=== PATIENT | female | born 1965 | race Caucasian/White ===

== ENCOUNTER → 2017-03-10 | Outpatient (CLI) | payer BC ==
[2015-06-11 00:54] VITALS: BP 112/70
--- NOTE | 2017-03-11 10:37 | MG ---
HISTORY: SCREENING Comparison: March 03, 2016 FINDINGS: Bilateral CC and MLO projections of the right and left breast were obtained. Heterogeneously dense fibroglandular tissue is seen to be present. No significant architectural distortion, mass or clust ered microcalcifications can be observed to suggest malignancy. No skin thickening or nipple retrac tion is appreciated. No pathological lymphadenopathy can be identified. Benign-appearing calcifica tions scattered throughout the right and left breasts are observed. IMPRESSION: NO RADIOGRAPHIC EVIDENCE OF MALIGNANCY. ACR CATEGORY: 2 - benign findings. FOLLOW-UP EXAM 1 YEAR. Diagnostic CAD was utilized and reviewed. * 0 (ZERO) - ASSESSMENT INCOMPLETE; ADDITIONAL IMAGING IS NEEDED. * 1/1 (ONE) - NEGATIVE. * 2/II (TWO) - BENIGN FINDINGS. * 3/III (THREE) - PROBABLY BENIGN FINDING; SHORT INTERVAL FOLLOW-UP SUGGESTED. * 4/IV (FOUR) - SUSPICIOUS ABNORMALITY; BIOPSY SHOULD BE CONSIDERED. * 5/V - HIGHLY SUSPICIOUS OF MALIGNANCY; BIOPSY SHOULD BE PERFORMED. A NEGATIVE X-RAY REPORT SHOULD NOT DELAY BIOPSY IF A DOMINANT OR CLINICALLY SUSPICIOUS MASS IS PRESENT; 4 TO 8 PERCENT OF CANCERS ARE NOT IDENTIFIED BY X-RAY. A NEG ATIVE REPORT MAY REINFORCE THE CLINICAL IMPRESSION. ADENOSIS AND DENSE BREASTS MAY OBSCURE AN UNDER LYING NEOPLASM. Reported By:
== END ==
LOC: RAD 13:43
PROVIDERS: ATTEND Specialist
DX: Z12.31 Encounter for screening mammogram for malignant neoplasm of breast (principal)
CPT/HCPCS: 77067

== ENCOUNTER 2018-10-25 10:09 | Observation (INO) ==
--- NOTE | 2018-10-25 11:08 | DR.DIZZY ---
HPI Time seen Time Seen by Provider: 10/25/18 10:55 PCP Primary Care Physician: DR MERINO Complaint Chief Complaint Doctor Comments: I agree with statement as written. Patient admits to dizziness workup in the past to include CT of Brain w/u negative this was five years ago. PMH of HTN. Chief Complaint:: PT WAS AT WORK THIS MORNING AND BENT OVER TO GET SOMETHING OFF THE SHELF AND WHEN SHE STOOD UP SHE BECAME VERY DIZZY AND FELT LIKE THE ROOM WAS SPINNING. SINCE THEN SHE HAS HAD INTERMITTENT EPISODES OF SEVERE DIZZINESS. Source History Provided: Patient Mode of Arrival Mode of Arrival: Ambulatory Timing Onset of Chief Complaint: 10/25/18 Symptom Onset: Unknown Location of Weakness Weakness Location: None Context History of: None Stroke Symptoms: None Associated signs and symptoms Associated Signs and Symptoms: Vertigo PMH PMH Past Medical History: Yes Past Medical History: Anxiety, Dyslipidemia and Hypertension Past Surgical History: Yes Surgical History: Cholecystectomy Past Surgical History Comment: CARPAL TUNNEL,D&C Family History History of Family Medical Conditions: Yes Family Medical History: Cancer and Hypertension Social History Does patient currently use any type of tobacco product: No Have you used tobacco products in the last 12 months: No Type of Tobacco Use: None Does any household member use tobacco: Yes Alcohol Use: Occasionally Do you use any recreational Drugs:: No Lives With: Family Lives Where: Home infectious screening In the last 2 months have you had wt loss of >10#?: NO Have you had fever, night sweats or hemotysis?: No Have you traveled outside the country in the last 6 months?: No Isolation: Standard PE Vital Signs Vitals: Temperature 98.3 F Pulse Rate [Brachial] 69 Pulse Rate 72 Respiratory Rate 18 Blood Pressure [Right Arm] 112/70 Blood Pressure [Left Arm] 111/67 Blood Pressure 127/73 O2 Sat by Pulse Oximetry 94 General Limitations: No Limitations and Language Barrier General Appearance: Alert, In No Apparent Distress and Appears Intoxicated Head Head Exam: Normal Inspection, Atraumatic and Normocephalic Eyes Eye exam: Normal Appearance, PERRL and EOMI Pupils: Regular, Round: Bilateral Sclera/Conjunctival: Normal Inspection: Bilateral Anterior Chamber: Normal Inspection: Bilateral Posterior Chamber: Deferred: Bilateral ENT ENT Exam: Normal Exam, Normal Oropharynx and Normal External Ear Exam Neck Neck Exam: Normal Inspection, Full ROM and Trachea Midline Chest Chest Inspection: Normal Inspection and Symmetric Chest Wall Rise Respiratory Respiratory Exam: Normal Lung Sounds Bilat Respiratory Exam: Bilateral: Clear to Auscultation Cardiovascular Cardiovascular Exam: Regular Rate and Normal Rhythm Abdominal Exam Abdominal Exam: Normal Inspection, Normal Bowel Sounds and Soft Rectal Rectal Exam: Deferred Extremeties Extremities Exam: Normal Inspection and Normal Capillary Refill; negative Tenderness, Edema and Joint Swelling Back Back Exam: Normal Inspection and Full ROM Neurologic Neurological Exam: Alert, Oriented X3, CN II-XII Intact and Normal Gait Cranial Nerve Exam: EOM Function (II, III, IV, ): Normal Cerebellar Function: Finger to Nose: Normal Motor Strength - LUE: 4/5 Motor Strength - RUE: 4/5 Motor Strength - LLE: 4/5 Skin Skin Exam: Warm, Dry, Intact and Normal Color COURSE Consultation Called: 11:50 Consultation Comments: Dr. Merino agreed to admit for further evaluation ROR Labs Reviewed Result Diagrams: 10/25/18 11:23 10/25/18 11:23 Laboratory: WBC 7.1 X10^3/uL (3.6-10.0) 10/25/18 11:23 RBC 4.32 X10^6/uL (3.5-5.4) 10/25/18 11:23 Hgb 13.0 g/dL (12.0-16.0) 10/25/18 11:23 Hct 39.2 % (36.0-47.0) 10/25/18 11:23 MCV 90.7 fL (80.0-100.0) 10/25/18 11:23 MCH 30.0 pg (27.0-34.0) 10/25/18 11:23 MCHC 33.1 g/dL (33.0-35.0) 10/25/18 11:23 RDW 14.3 % (11.6-16.5) 10/25/18 11:23 Plt Count 323 X10^3/uL (150.0-450.0) 10/25/18 11:23 MPV 8.3 fL (7.4-11.0) 10/25/18 11:23 Neut % (Auto) 63.4 % (42.0-75.0) 10/25/18 11:23 Lymph % (Auto) 22.7 % (21.0-51.0) 10/25/18 11:23 Davison % (Auto) 9.6 % (0.0-13.0) 10/25/18 11:23 Eos % (Auto) 3.4 % (0.9-2.9) H 10/25/18 11:23 Baso % (Auto) 0.9 % (0.2-1.0) 10/25/18 11:23 Neut # (Auto) 4.5 x10^3/uL (2.2-4.8) 10/25/18 11:23 Lymph # (Auto) 1.6 X10^3/uL (1.3-2.9) 10/25/18 11:23 Davison # (Auto) 0.7 x10^3/uL (0.3-0.8) 10/25/18 11:23 Eos # (Auto) 0.2 x10^3/uL (0.0-0.2) 10/25/18 11:23 Baso # (Auto) 0.1 X10^3/uL (0.0-0.1) 10/25/18 11:23 Absolute Nucleated RBC 0.0 /100WBC 10/25/18 11:23 INR Target Range - 10/25/18 11:23 INR 0.89 (0.8-1.3) 10/25/18 11:23 APTT 25.4 SECONDS (22.9-36.5) 10/25/18 11:23 PTT Comment - 10/25/18 11:23 Sodium 138 mmol/L (136-145) 10/25/18 11:23 Corrected Sodium TNP 10/25/18 11:23 Potassium 3.6 mmol/L (3.5-5.1) 10/25/18 11:23 Chloride 101 mmol/L (98-107) 10/25/18 11:23 Carbon Dioxide 29.8 mmol/L (21-32) 10/25/18 11:23 BUN 17 mg/dL (7-18) 10/25/18 11:23 Creatinine 0.93 mg/dL (0.55-1.02) 10/25/18 11:23 Est GFR (MDRD) Af Amer > 60 (>60) 10/25/18 11:23 Est GFR (MDRD) Non-Af > 60 (>60) 10/25/18 11:23 Glucose 101 mg/dL (65-99) H 10/25/18 11:23 Calcium 9.1 mg/dL (8.5-10.1) 10/25/18 11:23 Corrected Calcium TNP 10/25/18 11:23 Total Bilirubin 0.30 mg/dL (0.2-1.0) 10/25/18 11:23 AST 19 Units/L (15-37) 10/25/18 11:23 ALT 27 Units/L (12-78) 10/25/18 11:23 Alkaline Phosphatase 145 Units/L (46-116) H 10/25/18 11:23 Total Protein 7.9 g/dL (6.4-8.2) 10/25/18 11:23 Albumin 3.6 g/dL (3.4-5.0) 10/25/18 11:23 Globulin 4.3 g/dL (2.5-4.5) 10/25/18 11:23 Albumin/Globulin Ratio 0.8 Ratio (1.1-2.1) L 10/25/18 11:23 Triglycerides 213 mg/dL (0-150) H 10/25/18 11:23 Cholesterol 177 mg/dL (0-200) 10/25/18 11:23 LDL Cholesterol, Calc 55 mg/dL (0-100) 10/25/18 11:23 HDL Cholesterol 79 mg/dL (40-60) H 10/25/18 11:23 Cholesterol/HDL Ratio 2.2 (0.0-5.0) 10/25/18 11:23 Other Results Comments: CT Brain: No acute intracranial abnormality identified. 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 XRAY XRAY Interpreted by: Radiologist ADDITIONAL NOTES Additional Notes Additional Notes: patient admitted for further evaluation for syncope
--- NOTE | 2018-10-25 11:27 | CT ---
HISTORY: New onset dizziness Study: CT head without contrast Comparison: 12/15/2013 Technique: Axial noncontrast images with coronal and sagittal reformats. Dose reduction procedures were used with mA/kv adjusted for body size. Findings: The ventricles are normal in size shape and position. There is a small focus of decreased attenuation in the anterior limb of the right internal capsule likely an old lacunar infarct. There is no definite evidence for recent CVA, hemorrhage, mass lesion, or extra-axial fluid collection. The visualized sinuses are clear. The calvarium is intact. 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
[2018-10-25 11:31] LABS: BASOPHILS # (AUTO) 0.1 X10^3/uL (0.0-0.1); BASOPHILS % (AUTO) 0.9 % (0.2-1.0); EOSINOPHILS # (AUTO) 0.2 x10^3/uL (0.0-0.2); EOSINOPHILS % (AUTO) 3.4 % (0.9-2.9); HEMATOCRIT 39.2 % (36.0-47.0); LYMPHOCYTES # (AUTO) 1.6 X10^3/uL (1.3-2.9); LYMPHOCYTES % (AUTO) 22.7 % (21.0-51.0); MEAN CORPUSCULAR HGB CONC 33.1 g/dL (33.0-35.0); MEAN CORPUSCULAR VOLUME 90.7 fL (80.0-100.0); MEAN PLATELET VOLUME 8.3 fL (7.4-11.0); MONOCYTES # (AUTO) 0.7 x10^3/uL (0.3-0.8); MONOCYTES % (AUTO) 9.6 % (0.0-13.0); NEUTROPHILS # (AUTO) 4.5 x10^3/uL (2.2-4.8); NEUTROPHILS % (AUTO) 63.4 % (42.0-75.0); PLATELET COUNT 323 X10^3/uL (150.0-450.0); RED BLOOD COUNT 4.32 X10^6/uL (3.5-5.4); RED CELL DISTRIBUTION WIDTH 14.3 % (11.6-16.5); WHITE BLOOD COUNT 7.1 X10^3/uL (3.6-10.0)
[2018-10-25 11:38] LABS: BLOOD UREA NITROGEN 17 mg/dL (7-18); CALCIUM 9.1 mg/dL (8.5-10.1); CARBON DIOXIDE 29.8 mmol/L (21-32); CHLORIDE 101 mmol/L (98-107); CREATININE 0.93 mg/dL (0.55-1.02); SODIUM 138 mmol/L (136-145); eGFR NON BLACK RACES > 60 (>60)
[2018-10-25 12:06] LABS: ALANINE AMINOTRANSFERASE 27 Units/L (12-78); ALBUMIN 3.6 g/dL (3.4-5.0); ALKALINE PHOSPHATASE 145 Units/L (46-116); ASPARTATE AMINO TRANSFERASE 19 Units/L (15-37); TOTAL PROTEIN 7.9 g/dL (6.4-8.2)
[2018-10-25] MEDS ORDERED: NS 1/2 1000 ML IV 1,000 ML IV SCH (13:00)
[2018-10-25 13:09] LABS: CHOL/HDL RATIO 2.2 (0.0-5.0)
[2018-10-25] MEDS ORDERED: NS 1/2 1000 ML IV 1,000 ML IV ONE (13:42)
[2018-10-25 18:14] VITALS: BMI 32.2
--- NOTE | 2018-10-25 19:14 | DR.H&P ---
H&P - History & Physical for Day of: H&P Date: 10/25/18 - Chief Complaint Chief Complaint: DIZZINESS, NEAR SYNCOPE - History of Present Illness History of Present Illness: IS A 53 YEAR OLD PATIENT OF OURS. SHE PRESENTED TO THE OFFICE WITH COMPLAINTS OF ACUTE DIZZINESS AFTER BENDING OVER IN THE ROOM TO GET SOMETHING OFF OF A BOTTOM SHELF. SINCE THEN, SHE HAS HAD INTERMITTENT EPISODES OF SEVERE DIZZINESS. ON ARRIVAL, VITALS WERE 97 .4-72-22-100%-127/73. LABS WERE OBTAINED. ABNORMAL LAB VALUES INCLUDE THE FOLLOWING: GLUCOSE 101, ALK PHOS 145, TRIGLYCERIDES 213, HDL 79. A BRAIN CT WAS OBTAINED AND REVEALED: No acute intracranial abnormality identified. 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 EKG REVEALED ATRIAL FIBRILLATION WITH HR 84. SHE DENIES A HISTORY OF ATRIAL FIBRILLATION. SHE WAS ADMITTED FOR FURTHER EVALUATION AND TREATMENT OF ACUTE DIZZINESS AND NEAR SYNCOPE. SHE WAS STARTED ON NS AT [facility]. WE RESUMED HOME MEDICATIONS AND PLAN TO OBTAIN SERIAL CARDIAC ENZYMES AND EKGS. OTHERWISE, WE WILL FOLLOW UP WITH AM LABS AND CONTINUE TO MONITOR. - Past Medical History Past Medical History: Hypertension, Dyslipidemia, Anxiety - Past Surgical History Surgical History: Cholecystectomy - Family History Family Medical History: Cancer, Hypertension - Social History Does patient currently use any type of tobacco product: No Have you used tobacco products in the last 12 months: No Type of Tobacco Use: None Does any household member use tobacco: Yes Alcohol Use: Occasionally Drug Use: Prescription Drugs - Medications Home Medications: No Known Drug Allergies Allergy (Verified 10/25/18 11:24) CONTINUE taking the following medications conj estrogens-bazedoxifene [Duavee] 1 tab PO DAILY 10/25/18 [History] cyanocobalamin (vitamin B-12) 1 ml IM Q14D 10/25/18 [History] estradiol 0.01 % VAGINAL 2XW 10/25/18 [History] furosemide 40 mg PO DAILY 10/25/18 [History] metoprolol succinate 100 mg PO DAILY 10/25/18 [History] phentermine 1 tab PO DAILY 10/25/18 [History] triamterene-hydrochlorothiazid 1 cap PO DAILY 10/25/18 [History] - Review of Systems Constitutional: No Symptoms Reported Eyes: No Symptoms Reported ENT: No Symptoms Reported Respiratory: No Symptoms Reported Cardiovascular: Light Headedness Gastrointestinal: No Symptoms Reported Genitourinary: No Symptoms Reported Musculoskeletal: No Symptoms Reported Skin: No Symptoms Reported Neurological: No Symptoms Reported - Physical Exam Vital Signs: Temperature 98.3 F Pulse Rate [Brachial] 69 Pulse Rate 72 Respiratory Rate 18 Blood Pressure [Right Arm] 112/70 Blood Pressure [Left Arm] 111/67 Blood Pressure 127/73 O2 Sat by Pulse Oximetry 94 Oriented: Normal Eyes: Normal Ear: Normal Nose: Normal Throat: Normal Respiratory: Clear Throughout Cardiovascular: Irregular. negative: S3, S4, Murmur : Normal Auscultation: Bowel Sounds: Normal Palpation: Normal Tenderness: Normal Skin: Normal Musculoskeletal: Normal Psychiatric: Normal Mood Description: Calm Affect: Normal Speech Pattern: Clear - Assessment/Plan (1) Dizziness Status: Acute Plan: ADMIT, TELEMETRY, CONTINUE HOME MEDS, OBTAIN SERIAL CARDIAC ENZYMES AND EKGS, CONTINUE TO MONITOR (2) Near syncope Status: Acute (3) Atrial fibrillation by electrocardiogram Status: Acute - Allergies Allergies/Adverse Reactions: Allergies Allergy/AdvReac Type Severity Reaction Status Date / Time No Known Drug Allergies Allergy Verified 10/25/18 11:24
[2018-10-25 19:49] LABS: CKMB % 1.7 % (<4); CREATINE KINASE 60 Units/L (26-192); TROPONIN I < 0.02 ng/mL (0-1.5)
[2018-10-25 23:38] LABS: CKMB % 1.7 % (<4); CREATINE KINASE 58 Units/L (26-192); CREATINE KINASE MB < 1.0 ng/mL (0-4.0); TROPONIN I < 0.02 ng/mL (0-1.5)
[2018-10-26 05:16] LABS: BASOPHILS # (AUTO) 0.1 X10^3/uL (0.0-0.1); BASOPHILS % (AUTO) 0.9 % (0.2-1.0); EOSINOPHILS # (AUTO) 0.3 x10^3/uL (0.0-0.2); EOSINOPHILS % (AUTO) 4.7 % (0.9-2.9); HEMATOCRIT 37.2 % (36.0-47.0); HEMOGLOBIN 12.3 g/dL (12.0-16.0); LYMPHOCYTES # (AUTO) 1.8 X10^3/uL (1.3-2.9); LYMPHOCYTES % (AUTO) 29.3 % (21.0-51.0); MEAN CORPUSCULAR HGB CONC 32.9 g/dL (33.0-35.0); MEAN PLATELET VOLUME 8.5 fL (7.4-11.0); MONOCYTES # (AUTO) 0.6 x10^3/uL (0.3-0.8); MONOCYTES % (AUTO) 10.6 % (0.0-13.0); NEUTROPHILS # (AUTO) 3.3 x10^3/uL (2.2-4.8); NEUTROPHILS % (AUTO) 54.5 % (42.0-75.0); PLATELET COUNT 307 X10^3/uL (150.0-450.0); RED BLOOD COUNT 4.09 X10^6/uL (3.5-5.4); RED CELL DISTRIBUTION WIDTH 14.3 % (11.6-16.5)
[2018-10-26 05:42] LABS: ALANINE AMINOTRANSFERASE 27 Units/L (12-78); ALBUMIN 3.1 g/dL (3.4-5.0); ALKALINE PHOSPHATASE 129 Units/L (46-116); ASPARTATE AMINO TRANSFERASE 16 Units/L (15-37); BLOOD UREA NITROGEN 14 mg/dL (7-18); CALCIUM 8.8 mg/dL (8.5-10.1); CARBON DIOXIDE 26.8 mmol/L (21-32); CHLORIDE 104 mmol/L (98-107); COR CA(FOR HYPOALB) 9.5 mg/dL (8.5-10.1); CREATININE 0.86 mg/dL (0.55-1.02); SODIUM 139 mmol/L (136-145); TOTAL PROTEIN 6.8 g/dL (6.4-8.2); eGFR NON BLACK RACES > 60 (>60)
[2018-10-26 06:07] LABS: BILIRUBIN,URINE NEGATIVE (NEGATIVE); BLOOD/HEMOGLOBIN,URINE 2+ (NEGATIVE); GLUCOSE, URINE NEGATIVE (NEGATIVE); KETONES,URINE NEGATIVE (NEGATIVE); LEUKOCYTE ESTERASE ,URINE NEGATIVE (NEGATIVE); NITRITES,URINE POSITIVE (NEGATIVE); PROTEIN,URINE 1+ (NEGATIVE); UROBILINOGEN,URINE NORMAL (NORMAL)
[2018-10-26 06:12] LABS: APPEARANCE,URINE SLIGHTLY HAZY (CLEAR); COLOR,URINE YELLOW (YELLOW)
[2018-10-26 06:27] LABS: RBC,URINE 0-2 /HPF (NONE SEEN)
[2018-10-26 06:28] LABS: AMORPHOUS SEDIMENT,UR TRACE /HPF (NEGATIVE); BACTERIA,URINE 2+ /HPF (NEGATIVE); SQUAMOUS EPITHELIAL CELL,UR RARE /HPF (NEGATIVE)
[2018-10-26] MEDS ORDERED: POTASSIUM CHL 60 MEQ/NS 0.45% 500 ML IV PRN ×2 (06:39→06:44)
[2018-10-26] MEDS ORDERED: K-DUR TAB 20 MEQ PO PRN ×2 (06:39→06:44)
[2018-10-26] MEDS ORDERED: MICRO K EXTEN CAP 10 MEQ PO PRN ×2 (06:39→06:44)
[2018-10-26] MEDS ORDERED: POTASSIUM CHLORIDE LIQ 20 MEQ UDC PO PRN ×2 (06:39→06:44)
[2018-10-26] MEDS ORDERED: K-RIDER 10 MEQ/NS 100 ML 10 MEQ/100 ML BAG IV PRN ×2 (06:39→06:44)
[2018-10-26] MEDS ORDERED: KLOR-CON PO PRN ×2 (06:39→06:44)
[2018-10-26] MEDS ORDERED: POTASSIUM CHL 40 MEQ/NS 0.45% 500 ML IV PRN ×2 (06:39→06:44)
[2018-10-26] MEDS ORDERED: MAGNESIUM SULFATE 1 GRAM/100 mL PREMIX 1 GM/100 ML BAG IV PRN (06:39)
[2018-10-26] MEDS ORDERED: LIPITOR TAB 40 MG PO SCH (09:00)
[2018-10-26] MEDS ORDERED: LASIX PO SCH (09:00)
[2018-10-26] MEDS ORDERED: MAXZIDE 37.5/25 MG PO SCH (09:00)
[2018-10-26] MEDS ORDERED: TOPROL XL PO SCH (09:00)
[2018-10-26] MEDS ORDERED: [UNRECOGNIZED DRUG - OTHER] PO SCH (09:00)
[2018-10-26] MEDS ORDERED: CELEXA PO SCH (09:00)
[2018-10-26] MEDS ORDERED: TOPROL XL PO ONE (09:05)
[2018-10-26 10:37] VITALS: BP 89/50
== END 2018-10-26 12:20 | disposition home or self-care (01) ==
LOC: ER 10:09 → MED/SURG 10:09
PROVIDERS: ADMIT Internal Medicine; ATTEND Internal Medicine
DX: Z79.01 Long term (current) use of anticoagulants; Z79.899 Other long term (current) drug therapy; F41.8 Other specified anxiety disorders; E78.2 Mixed hyperlipidemia; R42 Dizziness and giddiness; R94.31 Abnormal electrocardiogram [ECG] [EKG]; I10 Essential (primary) hypertension; I48.91 Unspecified atrial fibrillation; R55 Syncope and collapse
CPT/HCPCS: 36415; 70450; 80053; 80061; 81001; 82550; 82553; 83735; 84484; 85025; 85610; 85730; 87086; 93005; 96365; 96374; 99284; A4222; G0378